=== PATIENT | female | born 1980 | race Hispanic/Latino ===

== ENCOUNTER 2017-02-08 11:07 | Outpatient (CLI) | payer OTHER ==
--- NOTE | 2017-02-11 15:23 | Mammography Report ---
SCREENING MAMMOGRAM: This is a baseline examination. The patient has a relatively significant amount of asymmetric fibroglandular tissue density in the superior right breast compared to the left. There is no identifiable mass nor architectural distortion. The breast pattern otherwise appears generally heterogeneous, symmetric, and unremarkable. CAD used. Impression: Right breast asymmetry. RECOMMENDATION: Right breast ultrasound. If abnormal, additional compression imaging of thr right breast may be indicated. BI-RADS CATEGORY: 0 = Needs additional imaging evaluation ACR BI-RADS MAMMOGRAPHIC CODES: 0 = Needs additional imaging evaluation; 1 = Negative; 2 = Benign; 3 = Probably benign; 4 = Suspicious; 5 = Malignant; 6 = Known biopsy-proven malignancy COMMENT: 1. Dense breast tissue, i.e., adenosis, fibrocystic changes, etc., may obscure an underlying neoplasm. 2. Approximately 10% of cancers are not detected with mammography. 3. A negative mammography report should not delay biopsy if a clinically suspicious mass is present. COMMENT: Patient follow-up letters are generated by [employer].
== END 2017-02-08 11:08 | disposition home or self-care (01) ==
LOC: SPVWC 11:07
PROVIDERS: ATTEND Nurse Practitioner Gerontology
DX: Z12.31 Encounter for screening mammogram for malignant neoplasm of breast (principal)
CPT/HCPCS: 77067; G0202

== ENCOUNTER 2017-02-24 08:18 | Outpatient (CLI) | payer OTHER ==
--- NOTE | 2017-02-24 09:19 | Mammography Report ---
RIGHT DIGITAL DIAGNOSTIC MAMMOGRAM and RIGHT BREAST ULTRASOUND: 02/24/17 08:18:00 CLINICAL: Recalled to evaluate asymmetric fibroglandular pattern of the right breast. COMPARISON:02/08/17 screening FINDINGS: Lateralmedial and spot compression MLO and CC views were performed. Asymmetric fibroglandular structures in the outer upper breast demonstrate satisfactory effacement. No mass, architectural distortion or suspicious calcifications. Ultrasound of the right breast (including all four quadrants and the retroareolar area) was performed and demonstrated normal fibroglandular and fatty structures. No mass, cyst or shadowing. IMPRESSION: Benign asymmetric fibroglandular structures of the right breast and negative right breast ultrasound. No suspicious finding. BI-RADS CATEGORY: 2 - - Benign RECOMMENDATION: Clinical followup and routine mammographic screening based on ACS guidelines. ACR BI-RADS MAMMOGRAPHIC CODES: 0 = Needs additional imaging evaluation; 1 = Negative; 2 = Benign; 3 = Probably benign; 4 = Suspicious; 5 = Malignant; 6 = Known biopsy-proven malignancy COMMENT: 1. Dense breast tissue, i.e., adenosis, fibrocystic changes, etc., may obscure an underlying neoplasm. 2. Approximately 10% of cancers are not detected with mammography. 3. A negative mammography report should not delay biopsy if a clinically suspicious mass is present. COMMENT: Patient follow-up letters are generated via our [employer] application.
== END 2017-02-24 08:19 | disposition home or self-care (01) ==
LOC: SPVWC 08:18
PROVIDERS: ATTEND Family Medicine
DX: N64.59 Other signs and symptoms in breast (principal)
CPT/HCPCS: 76641; G0206